=== PATIENT | female | born 1985 | race Caucasian/White ===

== ENCOUNTER 2017-06-29 08:05 | Inpatient (IN) | payer BC ==
[2017-06-29] MEDS ORDERED: Dinoprostone* 10 MG VAG.SUPP VAGINAL ONE ×2 (08:24→20:00)
[2017-06-29] MEDS ORDERED: diPHENhydraMINE PO* 25 MG PO PRN (21:04)
[2017-06-29] MEDS ORDERED: Nalbuphine* 20 MG/ML 1 ML VIAL IM PRN (21:15)
[2017-06-29] MEDS ORDERED: Promethazine INJ(RESTRICTED)* 25 MG/ML 1 ML VIAL IM PRN (21:16)
[2017-06-30] MEDS ORDERED: Influenza VAC *QUAD* 2017-18* 0.5 ML SYRINGE IM ONE (09:00)
[2017-06-30] MEDS ORDERED: Oxytocin in LR* 20 UNITS/1,000 ML BAG IVPB SCH (10:00)
[2017-06-30 10:13] LABS: Hematocrit 30 % (35-47); Hemoglobin 9.7 g/dl (12.0-16.0); Mean Corpuscular HGB Conc 32 g/dl (31-36); Mean Corpuscular Hemoglobin 25 pg (27-31); Mean Corpuscular Volume 78 fL (80-97); Mean Platelet Volume 9 um3 (7.4-10.4); Red Blood Count 3.84 10^6/ul (4.0-5.4); Red Cell Distribution Width 14 % (10.5-15); White Blood Count 8.9 10^3/ul (3.5-10.8)
[2017-06-30] MEDS ORDERED: OBEPIDURAL* 250 ML ONE (18:56)
[2017-06-30] MEDS ORDERED: Phenylephrine IV* 40 MCG/ML 10 ML SYRINGE IV PUSH PRN (19:43)
[2017-06-30] MEDS ORDERED: Famotidine TAB* 20 MG PO PRN (19:43)
[2017-06-30] MEDS ORDERED: Sodium Citrate/Citric Acid* 15 ML UDC PO PRN (19:43)
[2017-06-30] MEDS ORDERED: EPHEDrine (Pressors)* 50 MG/ML VIAL IV PUSH PRN (19:43)
[2017-06-30] MEDS ORDERED: OBEPIDURAL* 250 ML EPIDURAL SCH (20:00)
[2017-07-01] MEDS ORDERED: fentaNYL* 50 MCG/ML 2 ML VIAL (100 MCG VIAL) ONE (02:10)
[2017-07-01] MEDS ORDERED: fentaNYL* 50 MCG/ML 2 ML VIAL (100 MCG VIAL) IV SLOW PU ONE (02:30)
[2017-07-01] MEDS ORDERED: Misoprostol TAB* 200 MCG PR ONE (03:10)
[2017-07-01] MEDS ORDERED: Oxytocin in LR* 20 UNITS/1,000 ML BAG IVPB SCH (03:13)
[2017-07-01] MEDS: Ibuprofen TAB* 600 MG PO PRN ×4 (04:08→22:00)
[2017-07-01] MEDS: Witch Hazel PAD* JAR TOPICAL PRN (04:09)
[2017-07-01] MEDS: Dibucaine 1% 28.35 GM TUBE PR PRN (04:09)
[2017-07-01] MEDS ORDERED: Simethicone TAB* 80 MG TAB.CHEW PO SCH (08:30)
[2017-07-01] MEDS: Docusate CAP* 100 MG PO SCH ×3 (08:38→20:10)
--- NOTE | 2017-07-01 12:29 | OP ---
CC: [facility] * DATE OF OPERATION: 07/01/17 - ROOM #[id number] DATE OF : 85 SURGEON: Paul Barragan MD PRE-OP DIAGNOSIS: The patient is status post spontaneous vaginal delivery with a third-degree posterior vaginal laceration extending to the superior epidermal skin about 1 cm above the rectum inferiorly and mid vaginally superiorly. POST-OP DIAGNOSIS: The patient is status post spontaneous vaginal delivery with a third-degree posterior vaginal laceration extending to the superior epidermal skin about 1 cm above the rectum inferiorly and mid vaginally superiorly. OPERATIVE PROCEDURE: Repair of third-degree laceration with 3-0 chromic suture. ESTIMATED BLOOD LOSS: None. COMPLICATIONS: None. DESCRIPTION OF PROCEDURE: The patient was in labor and delivery room after vaginal delivery where I was asked to come and evaluate vaginal laceration. The extent of the vaginal laceration was as noted above on the preprocedural diagnosis. I then proceeded to close the laceration with combination of interrupted and continuous 0 chromic sutures from the superior aspect and then heading inferiorly. The perineal muscles were sutured together separately towards the end of the repair with 3-0 chromic suture that was not able to close the entirety of the subvaginal subcuticular laceration with chromic sutures and then I did a subcuticular stitch with 3-0 chromic suture with good approximation of the vaginal laceration. There was no bleeding noted and rest of the vagina was noted to be intact. There were no complications. [id number]/[facility] #: [id number] MTDD
[2017-07-01] MEDS: Acetaminophen TAB* 325 MG PO PRN (20:10)
[2017-07-01] MEDS: Ferrous Gluconate TAB* 324 MG TAB PO SCH (20:10)
[2017-07-01] MEDS ORDERED: oxyCODONE/Acetamin 5/325 MG* TAB PO PRN (22:19)
[2017-07-02] MEDS: Acetaminophen TAB* 325 MG PO PRN ×2 (03:18→08:39)
[2017-07-02] MEDS: Ibuprofen TAB* 600 MG PO PRN ×2 (04:18→10:36)
[2017-07-02] MEDS: Witch Hazel PAD* JAR TOPICAL PRN (04:21)
[2017-07-02] MEDS: Dibucaine 1% 28.35 GM TUBE PR PRN (04:21)
[2017-07-02 07:02] LABS: Hematocrit 22 % (35-47); Hemoglobin 7.3 g/dl (12.0-16.0); Mean Corpuscular HGB Conc 33 g/dl (31-36); Mean Corpuscular Hemoglobin 26 pg (27-31); Mean Corpuscular Volume 79 fL (80-97); Mean Platelet Volume 9 um3 (7.4-10.4); Red Blood Count 2.84 10^6/ul (4.0-5.4); Red Cell Distribution Width 15 % (10.5-15); White Blood Count 8.7 10^3/ul (3.5-10.8)
[2017-07-02 08:25] VITALS: BP 126/82
[2017-07-02] MEDS: Ferrous Gluconate TAB* 324 MG TAB PO SCH (08:40)
[2017-07-02] MEDS: Docusate CAP* 100 MG PO SCH (08:41)
== END 2017-07-02 11:45 | disposition home or self-care (01) | DRG 542 ==
LOC: MCHOBOUT 08:05 → MCHOB 08:22
PROVIDERS: ADMIT Midwife; ATTEND Obstetrics & Gynecology
PROC: 3E0P7VZ Introduction of Hormone into Female Reproductive, Via Natural or Artificial Opening (ICD-10-PCS; principal; 2017-07-01)
PROC: 10907ZC Drainage of Amniotic Fluid, Therapeutic from Products of Conception, Via Natural or Artificial Opening (ICD-10-PCS; 2017-07-01)
PROC: 10E0XZZ Delivery of Products of Conception, External Approach (ICD-10-PCS; 2017-07-01)
PROC: 4A1HXCZ Monitoring of Products of Conception, Cardiac Rate, External Approach (ICD-10-PCS; 2017-07-01)
PROC: 0KQM0ZZ Repair Perineum Muscle, Open Approach (ICD-10-PCS; 2017-07-01)
PROC: 0UQG0ZZ Repair Vagina, Open Approach (ICD-10-PCS; 2017-07-01)
DX: O48.0 Post-term pregnancy (principal); Z68.41 Body mass index [BMI] 40.0-44.9, adult; Z3A.41 41 weeks gestation of pregnancy; Z37.0 Single live birth; O32.6XX0 Maternal care for compound presentation, not applicable or unspecified; O77.0 Labor and delivery complicated by meconium in amniotic fluid; O90.81 Anemia of the puerperium; O75.89 Other specified complications of labor and delivery; O99.214 Obesity complicating childbirth; E66.9 Obesity, unspecified; O70.1 Second degree perineal laceration during delivery
CPT/HCPCS: 36415; 59200; 85025; 85027; 86850; 86900; 86901; 90686; A9270-GY; J2300; J2550; J3010